=== PATIENT | female | born 1980 | race Asian ===

== ENCOUNTER 2019-11-28 11:16 | Emergency (ER) | payer BC, OTHER ==
[~2019-11-28] VITALS: Ht 160 cm; Wt 72.6 kg
[2019-11-28 11:16] VITALS: BP_SYST 110
[2019-11-28] MEDS ORDERED: NACL 0.9% 1,000 ML IV ONE ×2 (11:30→12:30)
[2019-11-28] MEDS ORDERED: ONDANSETRON HCL 4 MG/2 ML VIAL IVP ONE (11:30)
[2019-11-28 13:34] VITALS: BP_SYST 114
== END 2019-11-28 13:33 | disposition home or self-care (01) ==
LOC: SED 11:16
DX: O21.8 Other vomiting complicating pregnancy (principal); Z3A.15 15 weeks gestation of pregnancy
CPT/HCPCS: 81002; 96361; 96374; 99283; J2405; J7030